=== PATIENT | male | born 1985 | race Caucasian/White ===

== ENCOUNTER 2018-11-18 04:29 | Emergency (ER) | payer BC, SELFPAY ==
[2018-11-18 04:31] VITALS: BP 139/82; PULSE 84; RESP 16; TEMP 36.4; O2SAT 100; BMI 21.3
--- NOTE | 2018-11-18 04:43 | EKG12_ITS ---
Test Reason : CP Blood Pressure : / mmHG Vent. Rate : 066 BPM Atrial Rate : 066 BPM P-R Int : 116 ms QRS Dur : 118 ms QT Int : 382 ms P-R-T Axes : 006 080 072 degrees QTc Int : 400 ms Normal sinus rhythm Incomplete right bundle branch block Borderline ECG Confirmed by KYLE AMADOR, VASQUEZ ([id number]), news editor TAL CORDON ([id number]) on 11/21/2018 1:58:43 PM Referred By: ADDIE Confirmed By:VASQUEZ WRIGHT MD
--- NOTE | 2018-11-18 04:43 | RAD_ITS ---
HISTORY: CP Chest and neck pain x 1 day EXAM:XR Chest 2 Views COMPARISON: 05/21/2015 FINDINGS: EKG leads in place. No significant change. Normal heart size. Hyperinflation and hyperlucency of both lungs. Increased retrosternal airspace. No vascular congestion, pleural effusion, or acute pulmonary infiltration. No pneumothorax. The bony thorax appears intact. RAD/Chest PA and Lateral IMPRESSION: 1. No acute cardiopulmonary disease. No significant interval change. 2. COPD. at 0512 Reported and signed by: James Palm MD Electronically Signed: James Palm, at 5:10 EDT Tel , Service support ,
[2018-11-18 04:51] LABS: Absolute Lymphocyte Count 1.71 X10^3/ul (0.83-4.51); Absolute Neutrophil Count 3.2 X10^3/uL (2.0-7.7); Basophil# 0.01 X10^3/uL; Basophil% 0.2 % (0-1); Eosinophils% 1.8 % (0-5); Hemoglobin 15.8 g/dl (13.0-16.5); Lymphocyte # 1.71 X10^3/ul (4.0); Lymphocyte % 31.6 % (19-41); Mean Corp Hgb Conc 34.3 g/gl (32-36); Mean Corpuscular Hgb 29.5 pg (27.0-32.0); Mean Corpuscular Volume 85.8 fL (80-94); Mean Platelet Vol. 10.3 fl (6.2-12.0); Monocyte# 0.43 X10^3/uL; Monocyte% 7.9 % (0-10); Neutrophil # 3.15 X10^3/uL (2.7-7.7); Neutrophil % 58.3 % (47-70); Platelet Count 174 K/mm3 (150-450); RBC Distribution Width CV 12.5 % (11.6-14.6); RBC Distribution Width SD 39.5 fl (35.1-43.9); Red Blood Count 5.36 M/mm3 (4.6-6.2); White Blood Count 5.4 K/mm3 (4.4-11.0)
[2018-11-18 04:52] LABS: POSITIVE COUNT NO; POSITIVE DIFFERENTIAL NO; POSITIVE MORPHOLOGY NO
[2018-11-18 05:04] LABS: Anion Gap 6 (5-15); BUN 10 mg/dL (7-18); BUN/Creat Ratio 10.5 RATIO (10-20); Calcium,Total 8.7 mg/dL (8.5-10.1); Chloride 106 mmol/L (98-107); Creatinine, Serum 0.95 mg/dL (0.70-1.30); EST Glomerular Filtration Rate 96 mL/min (>60); Est Glom Filt Rate - Afr Amer 117 mL/min (>60); Estimated Creatinine Clearance 113.59 ml/min; Glucose 117 mg/dL (74-106); Potassium 3.6 mmol/L (3.5-5.1); Sodium Level 141 mmol/L (136-145)
--- NOTE | 2018-11-18 05:24 | ED.VISSUMM ---
- ER Visit Summary Date of Service: 11/18/18 Chief Complaint: Chest pain History of Present Illness: The patient is a 33 M who presents with chest pain. This began about an hour ago while watching a movie. He states that it is in the center of his chest and radiated up the right side of his neck. Currently he only has right-sided neck pain. There were no associated symptoms such as shortness of breath nausea vomiting or diaphoresis. He denies any medical history. He has had prior similar symptoms. Physical Examination: Afebrile vitals normal Moist mucous membranes No distress Heart regular rate and rhythm no murmur Lungs are clear Abdomen soft Alert Test Results: EKG shows normal sinus rhythm at a rate of 66 with no acute ischemic changes. Labs are normal with a negative troponin and chest x-ray shows no acute disease. Emergency Department Course and Treatment: Patient is otherwise healthy without risk factors for coronary artery disease. He has normal EKG and negative labs. I do not believe this is cardiac in nature. He was advised on signs and symptoms to monitor for and conditions which should prompt return here to the emergency department. Otherwise he was advised to follow-up as an outpatient. Patient was discharged. Treatment Plan: [] Disposition: Discharge Impression: Chest pain This note was generated with [employer] dictation software. It may contain incorrect words, spelling, and punctuation that were not noted in review of the chart prior to signing ED Disposition - Plan for ED Patient: Referrals: Care Physician,No Primary [Primary Care Provider] -
--- NOTE | 2018-11-18 05:26 | ED.DEP ---
ED Disposition - Plan for ED Patient: Instructions: ED Chest Pain NonCardiac Referrals: Care Physician,No Primary [Primary Care Provider] -
[2018-11-18 05:30] VITALS: BP 106/69; PULSE 61; RESP 12; O2SAT 98
== END 2018-11-18 05:31 | disposition home or self-care (01) ==
LOC: ED 04:53
PROVIDERS: Emergency Provider Emergency Medicine
DX: R07.9 Chest pain, unspecified (principal); Z72.0 Tobacco use
CPT/HCPCS: 71046; 80048; 84484; 85025; 93005; 99283

== ENCOUNTER → 2019-04-24 12:19 | Outpatient (CLI) | payer BC, SELFPAY ==
--- NOTE | 2019-04-24 12:21 | US_ITS ---
STUDY: SUPERFICIAL ULTRASOUND - LEFT INGUINAL REGION, REASON FOR EXAM: Male, 34 years old. Palpable lump TECHNIQUE: A superficial ultrasound was performed with real-time and static foote-scale imaging. COMPARISON: None. FINDINGS: Ultrasound evaluation of the left inguinal region shows a poorly defined hypoechoic nodule measuring 3.1 x 1.4 x 1.0 cm, likely lymph node. Short-term follow-up recommended to assure resolution US/Ext Non Vasc Limited/Soft Tiss IMPRESSION: Likely lymph node corresponding to the palpable lump in the left inguinal region short-term follow-up recommended to assure resolution Electronically Signed: Zak Fair MD at 16:30 EDT , Service support ,
== END ==
PROVIDERS: Family Provider Family Medicine; PCP Family Medicine; Referring Provider Family Medicine; Visit Provider Family Medicine
DX: M79.605 Pain in left leg (principal)
CPT/HCPCS: 76882

== ENCOUNTER → 2021-12-17 | Outpatient (CLI) | payer OTHER, SELFPAY ==
[2021-12-17 12:10] LABS: Absolute Lymphocyte Count 1.34 X10^3/uL (0.83-4.51); Absolute Neutrophil Count 2.3 X10^3/uL (2.0-7.7); Basophil# 0.03 X10^3/uL; Basophil% 0.7 % (0-1); Eosinophil# 0.05 X10^3/uL; Eosinophils% 1.2 % (0-5); Hematocrit 45.8 % (40-54); Hemoglobin 15.5 g/dL (13.0-16.5); Lymphocyte # 1.34 X10^3/ul (0.83-4.51); Lymphocyte % 32.1 % (19-41); Mean Corp Hgb Conc 33.8 g/dL (32-36); Mean Corpuscular Hgb 29.6 pg (27.0-32.0); Mean Corpuscular Volume 87.4 fL (80-94); Mean Platelet Vol. 10.8 fl (6.2-12.0); Monocyte% 9.6 % (0-10); NRBC Flagged by Analyzer 1.2 % (0-5); Neutrophil # 2.28 X10^3/uL (2.7-7.7); Neutrophil % 54.7 % (47-70); Platelet Count 248 K/mm3 (150-450); RBC Distribution Width CV 11.5 % (11.6-14.6); RBC Distribution Width SD 37.2 fl (35.1-43.9); Red Blood Count 5.24 M/mm3 (4.6-6.2); White Blood Count 4.2 K/mm3 (4.4-11.0)
[2021-12-17 12:29] LABS: AST(SGOT) 16 U/L (15-37); Alanine Aminotransfer ALT/SGPT 28 U/L (16-61); Albumin, Serum 4.5 g/dL (3.2-5.0); Alkaline Phosphatase 71 U/L (45-117); Anion Gap 5 (5-15); BUN 14 mg/dL (7-18); BUN/Creat Ratio 12.6 RATIO (10-20); Bilirubin, Direct 0.09 mg/dL (0.00-0.30); Calcium,Total 9.4 mg/dL (8.5-10.1); Chloride 104 mmol/L (98-107); Creatinine, Serum 1.11 mg/dL (0.70-1.30); EST Glomerular Filtration Rate 79 mL/min (>60); Est Glom Filt Rate - Afr Amer 96 mL/min (>60); Globulin 3.6 g/dL (2.2-4.2); Glucose 103 mg/dL (74-106); Potassium 4.5 mmol/L (3.5-5.1); Protein, Total 8.1 g/dL (6.4-8.2); Sodium Level 139 mmol/L (136-145)
[2021-12-17 13:19] LABS: Hepatitis B Surface Antibody Reactive; Hepatitis B Surface Antigen Non-Reactive (Nonreactive); Hepatitis C Antibody Non-Reactive (Nonreactive)
[2021-12-19 18:07] LABS: QNTFERON TB Mitogen Value > 10.00 IU/mL (.); QNTFERON TB Nil Value 0 IU/mL (.); QNTFERON TB1+ Ag Value 0.01 IU/mL (.); QNTFERON TB2+ Ag Value 0.01 IU/mL (.)
[2021-12-19 20:01] LABS: Hepatitis B Core Ab Total Negative (Negative); QNTIFERON TB Positive Criteria Negative (Negative)
== END | disposition home or self-care (01) ==
LOC: LAB 11:20
PROVIDERS: PCP Family Medicine; Referring Provider Dermatology; Visit Provider Dermatology
DX: L40.0 Psoriasis vulgaris (principal); Z79.899 Other long term (current) drug therapy
CPT/HCPCS: 36415; 80048; 80076; 85025; 86480; 86704; 86706; 86803; 87340

== ENCOUNTER 2023-03-06 10:30 | Emergency (ER) | payer OTHER, SELFPAY ==
[2023-03-06 10:30] VITALS: BP 114/86; PULSE 63; RESP 18; TEMP 36.4; O2SAT 100; BMI 23.1
--- NOTE | 2023-03-06 10:41 | VDLE_ITS ---
Reason For Study: Pain LLE RIGHT LEFT CFV is compressible, spontaneous, phasic, GSV is normal. competent and demonstrates normal CFV is compressible, spontaneous, phasic, augmentation. competent, and demonstrates normal Procedure augmentation. This is a venous duplex using B-mode, color FV is compressible, spontaneous, phasic, flow and spectral Doppler. competent and demonstrates normal Exam performed portable in ED. augmentation. A preliminary report was called and/or faxed POP V is compressible, spontaneous, phasic, to Dr. Ivy. competent and demonstrates normal augmentation. T/P Trunk is compressible. PTV is compressible. LT PerV is compressible. Lt Varicose vein at posterior knee is partially compressible consistent with acute SVT. VL/Venous Duplex US, Unilateral Interpretation Summary Acute superficial vein thrombosis is noted in varicosities in the popliteal fos sa. Deep veins of the left lower extremity are patent and compressible segmentally. There is no evidence of left lower extremity deep vein thrombosis. The left great saphenous vein ambrose ears patent and compressible segmentally. Ordering Physician: Carl Ivy Referring Physician: Migue Walker Performed By: Shaunna Quan, MINO, RVT
--- NOTE | 2023-03-06 10:41 | ED.VIS.LOWEX ---
HPI History of Present Illness HPI Narrative: 79-year-old male history of varicose veins. No other past medical history. No history of DVT or PE. Complaining of pain behind his left knee for the last 1 to 2 days. Denies any fall injury or trauma. No travel, surgery or hospitalization. Chief Complaint: Lower Extremity Injury Informant: patient Occured/Mechanism Mechanism/Context: No injury and No blunt trauma Onset/Context/Timing Onset: Today and Yesterday Context: Gradual Onset Timing: Continuous Quality of Pain: Dull and Aching Current Severity: Mild Maximum Severity: Mild Associated Symptoms Associated Symptoms: Negative for Parasthesia, Weakness or Loss of Funtion Narrative Narrative: 37-year-old male known history of varicose veins. Complaining of discomfort on his left knee. No history of DVT or PE or risk factors. Prior similar symptoms: No Recent Illness/Hospitalization: No PFSH PFSH Medical History Varicose veins of left lower extremity Home Medications ixekizumab 80 mg/mL subcutaneous auto-injector (Taltz Autoinjector) mg subcut 03/06/23 [History Last Taken Unknown] Allergy/AdvReac Type Severity Reaction Status Date / Time No Known Allergies Allergy Verified 11/18/18 04:30 Social History Smoking Status: Never smoker ROS ROS ED ROS Narrative Denies recent illness. Review of Systems ROS Unobtainable: Denies due to encephalopathy Constitutional Constitutional ED: Denies chills or fever(s) Eyes Eyes: Denies blurry vision ENT ENT ED: Denies ear pain Cardiovascular Cardiovascular: Denies chest pain Respiratory/Chest Respiratory/Chest: Denies cough or dyspnea Gastrointestinal Gastrointestinal: Denies abdominal pain Genitourinary Genitourinary ED: Denies dysuria or hematuria Musculoskeletal Musculoskeletal: Denies arthralgias Integumentary Denies abscess Neurologic Neurologic: Denies headache(s) Psychiatric Psychiatric: Denies anxiety or depression Endocrine Endocrinology: Denies polydipsia Hematologic/Lymphatic Hematologic/Lymphatic: Denies easy bleeding Allergic/Immunologic Allergic/Immunologic ED: Denies mouth swelling or tongue swelling EXAM Physical Exam Narrative Exam Narrative: Well-appearing 37-year-old male. Vital signs stable afebrile. HEENT exam unremarkable. Lungs clear. Heart regular rhythm no murmur. Abdomen soft. Moving all 4 extremities. Neurovascular intact. Behind his left knee is a varicose vein. He is tender to palpation. There is no discoloration. No redness or warmth. No signs of cellulitis. Both calves are nontender. There is no edema. He has normal strength in both lower extremities. Normal range of motion. No joint swelling. Otherwise exam unremarkable. Const Vital Signs: 03/06/23 10:30 Temperature 97.6 F L Temperature Source Temporal Pulse Rate 63 Respiratory Rate 18 Blood Pressure 114/86 H Blood Pressure Mean 95 Pulse Ox 100 Oxygen Delivery Method Room Air Positive well nourished and well developed; Negative for obese, cachectic, contractures or unkempt General Appearance ED: well developed and NAD; Negative for unkempt, cachectic or contractures Nutritional Appearance: Negative for cachectic or obese HEENT Reports moist mucous membranes normocephalic and atraumatic; Negative for trauma or tenderness Eyes PERRL General Eye ED: Negative for other Neck full ROM and supple Thyroid: Negative for tender Lymph Lymphatic: Negative for other Chest Wall inspection of chest normal and palpation of chest normal Resp normal respiratory effort, no retractions and clear to auscultation bilaterally Effort and Inspection: Negative for pain with movement Auscultation: Negative for rales, rhonchi, wheezes or diminished lung sounds Cardio regular rate, regular rhythm, S1 normal heart sound, S2 normal heart sound and no murmurs Rate: Negative for bradycardia or tachycardic Rhythm: Negative for abnormal rhythm GI non-tender, non-distended and no masses Inspection: Negative for abdominal distention Auscultation: normoactive bowel sounds Palpation: soft; Negative for tender or guarding Bladder / Kidney Exam: No other Back/Spine no CVA tenderness General Back: Negative for CVA tenderness Cervical Spine: Negative for cervical spine tenderness Thoracic Spine / Upper Back: Negative for thoracic spinal tenderness Lumbar Spine / Lower Back: Negative for lumbar spinal tenderness Extremity normal to inspection and full ROM Extremity Narrative: Tender varicose vein behind his left knee. No discoloration. No edema. No swelling. General Extremety ED: Negative for cyanosis or edema General Extremity: Negative for cyanosis or edema Neuro oriented x3, CN's II-XII intact bilaterally and moves all extremities Sensorium / Orientation: alert, oriented to person, oriented to place and oriented to time; Negative for orientation impaired, confused, lethargic or stuporous Motor Exam: strength 5/5 throughout Psych mental status grossly normal Appearance: Negative for unkempt Speech: No other Mood & Affect: Negative for anxious Skin no wounds Lesions: no lesions Rashes: no rashes Trauma: Negative for abrasion or laceration Image ED - Lower Extremity Diagram: 1. Tender varicose vein behind his left knee. MDM MDM MDM Narrative Medical decision making narrative: 37-year-old male with atraumatic pain behind his left knee with known varicose veins. Ultrasound being obtained to rule out DVT. Most likely is a superficial thrombophlebitis. This is a superficial thrombophlebitis per ultrasound. He will be treated with warm compresses anti-inflammatories and follow-up as needed. History & Record Review Discussion w/independent historian: Patient Lab Data Attestation: I reviewed the patient's lab results. Lab results narrative: Noninvasive study of his left leg showed superficial thrombophlebitis where he has the pain in where the varicose vein is. No DVT per the platform power technician. Discharge Plan Triage Chief Complaint: Lower Extremity Injury ED Provider: Carl Ivy Dx/Rx/DC Orders Clinical Impression: Superficial thrombophlebitis of left leg Instructions: ED Thrombophlebitis, Superficial Prescriptions: No Action Taltz Autoinjector 80 mg/mL auto-injector subcut Primary Care Provider: Migue Walker Referrals: Migue Walker MD [Primary Care Provider] - As Needed Activity Restrictions/Additional Instructions: Motrin for pain and inflammation. Warm compresses to posterior left knee. This should progressively improve. If not follow-up your primary care physician. Disposition Disposition: Home, Self Care
== END 2023-03-06 11:40 | disposition home or self-care (01) ==
LOC: ED 11:10
PROVIDERS: Emergency Provider Emergency Medicine; PCP Family Medicine; Visit Provider Emergency Medicine
DX: I80.02 Phlebitis and thrombophlebitis of superficial vessels of left lower extremity (principal)
CPT/HCPCS: 93971; 99282

== ENCOUNTER → 2023-06-22 | Outpatient (CLI) | payer OTHER, SELFPAY ==
--- NOTE | 2023-06-22 12:43 | VDLE_ITS ---
Reason For Study: Pain RIGHT LEFT CFV is compressible, spontaneous, phasic, CFV is compressible, spontaneous, phasic, competent and demonstrates normal competent, and demonstrates normal augmentation. augmentation. FV is compressible, spontaneous, phasic, FV is compressible, spontaneous, phasic, competent and demonstrates normal competent and demonstrates normal augmentation. augmentation. POP V is compressible, spontaneous, phasic, POP V is compressible, spontaneous, phasic, competent and demonstrates normal competent and demonstrates normal augmentation. augmentation. T/P Trunk is compressible. T/P Trunk is compressible. PTV is compressible. PTV is compressible. RT PerV is compressible. LT PerV is compressible. SFJ is INCOMPETENT and measures 0.74cm x 0.64 SFJ is INCOMPETENT and measures 0.96cm x 0.88 cm. cm. GSV proximal thigh measures 0.70cm x 0.75 cm. GSV proximal thigh measures 0.89cm x 1.19 cm. GSV at knee measures 0.64cm x 0.64 cm. GSV at knee measures 0.28cm x 0.29 cm. GSV INCOMPETENT throughout for greater than GSV INCOMPETENT throughout for greater than 0.5 seconds. 0.5 seconds. ASV mid thigh is INCOMPETENT for greater than ASV mid thigh is INCOMPETENT for greater than 0.5 seconds and measures 0.53cm x 0.62 cm. 0.5 seconds and measures 0.59cm x 0.74 cm. ASV at knee is INCOMPETENT for greater than ASV proximal calf is INCOMPETENT for greater 0.5 seconds and measures 0.59cm x 0.53 cm. than 0.5 seconds and measures 0.54cm x 0.61 ASV proximal calf is INCOMPETENT for greater cm. than 0.5 seconds and measures 0.37cm x 0.39 ASV mid calf is INCOMPETENT for greater than cm. 0.5 seconds and measures 0.44cm x 0.51 cm. SSV proximal calf is INCOMPETENT for greater SSV proximal calf is competent and measures than 0.5 seconds and measures 0.39cm x 0.40 0.26cm x 0.31 cm. cm. Lt knee varicose vein is dilated and non Procedure compressible consistent with acute SVT. This is a venous duplex using B-mode, color flow and spectral Doppler. Exam performed in department. A preliminary report was called and/or faxed to Kim ORTA. VL/Venous Duplex US - Eliel Extrem Interpretation Summary Acute superficial vein thrombosis is noted in varicosities at the left knee Deep veins of the bilateral lower extremities are patent and compressible segme ntally. There is no evidence of bilateral lower extremity deep vein thrombosis. The bilateral great saphenous veins appear patent and compressible segmentally. Positive for reflux in the right saphenofemoral junction, great saphenous vein throughout, accessory saphenous veins in thigh/at the knee/in calf, small saphenous vein Positive for reflux in the left saphenofemoral junction, great saphenous vein t hroughout, accessory saphenous veins in thigh/proximal calf/mid calf. Ordering Physician: Shannon Ramírez Referring Physician: Sahnnon Ramírez Performed By: Shaunna Quan, MINO, RVT
== END | disposition home or self-care (01) ==
LOC: CVS 12:42
PROVIDERS: Referring Provider Physician Assistant; Visit Provider Physician Assistant
DX: I80.02 Phlebitis and thrombophlebitis of superficial vessels of left lower extremity (principal); I83.893 Varicose veins of bilateral lower extremities with other complications
CPT/HCPCS: 93970

== ENCOUNTER 2025-07-04 09:06 | Emergency (ER) | payer OTHER, SELFPAY ==
[2025-07-04 09:07] VITALS: BP 139/81; PULSE 68; RESP 12; TEMP 36.4; O2SAT 100; BMI 23.2
--- NOTE | 2025-07-04 09:31 | EKG12_ITS ---
Test Reason : CHEST PAIN Blood Pressure : */* mmHG Vent. Rate : 78 BPM Atrial Rate : 78 BPM P-R Int : 154 ms QRS Dur : 116 ms QT Int : 374 ms P-R-T Axes : 69 65 69 degrees QTcB Int : 426 ms Normal sinus rhythm with sinus arrhythmia Normal ECG Confirmed by JESSICA AMADOR, MARCIAL ([id number]), editor department JOLANTA MONTANEZ ([id number]) on 07/05/2025 9:14:52 AM Referred By: Confirmed By: MARCIAL LOPEZ MD
--- NOTE | 2025-07-04 09:31 | ED.VIS.CHEST ---
HPI History of Present Illness Chief Complaint: Chest Pain Narrative Narrative: Patient is a 40-year-old male presenting to the emergency department for midsternal chest pain. Patient has no significant past medical history. No cardiac or pulmonary history. No recent travel, hospitalizations or surgeries. Denies any family history of sudden cardiac before the age of 50. States that this past week he has been up with his a significant portion of the night. States that last night around 2 or 3 AM he developed a midsternal chest pain that did not radiate anywhere. Denies any shortness of breath. Denies any diaphoresis, abdominal pain, nausea or vomiting. Denies any fever, chills, cough or congestion. States he has issues with varicose veins in his legs but this is unchanged from baseline with no increased pain or swelling. States that this morning he checked his pulse ox and it read 70% which concerned him and he came in to be evaluated. [facility] Medical History Varicose veins of left lower extremity Allergy/AdvReac Type Severity Reaction Status Date / Time No Known Allergies Allergy Verified 07/04/25 09:07 Social History Smoking Status: Never smoker ROS ROS ED ROS Narrative see HPI EXAM Physical Exam Narrative Exam Narrative: Vital signs: Reviewed General: Alert and oriented x 3. No acute distress HEENT: Head is normocephalic and atraumatic, sinuses nontender, pupils equal round and reactive. Nares are patent. Oropharynx and throat exams normal. Neck: Supple without lymphadenopathy nontender Cardiovascular: Regular rate and rhythm, no murmurs. No rubs or gallops. Normal S1 and S2 Respiratory: Clear to auscultation bilaterally. No wheezes, rales, rhonchi Chest: Chest wall is nontender to palpation. Abdominal: Soft and nontender. Normal bowel sounds. No guarding or rebound. Nonsurgical abdomen Extremities: No lower extremity edema. No tenderness. No bruising. Normal range of motion. Normal sensation. Skin: No rash or redness. The rest of the physical exam is unremarkable Const Vital Signs: 07/04/25 09:07 07/04/25 09:09 07/04/25 10:07 Temperature 97.6 F L Temperature Source Oral Pulse Rate 68 60 Respiratory Rate 12 9 L Respiratory Effort Normal Non-Labored Blood Pressure 139/81 H 132/77 H Blood Pressure Mean 100 95 Pulse Ox 100 100 Oxygen Delivery Method Room Air Room Air 07/04/25 10:33 Temperature 98 F Temperature Source Pulse Rate 78 Respiratory Rate 16 Respiratory Effort Blood Pressure 110/78 Blood Pressure Mean 88 Pulse Ox 97 Oxygen Delivery Method MDM MDM MDM Narrative Medical decision making narrative: Patient is a 40-year-old male presenting to the emergency department for chest pain. Patient was seen and examined. Vitals are stable. Patient resting in bed comfortably no acute distress. Saturating 100% on room air, respirations of 12, pulse of 68, BP of 139/81. He is afebrile. Differential includes but is not limited to: ACS, musculoskeletal, pneumonia, pneumothorax, PE I suspect that his pulse ox at home was not reading correctly given his read about 100% here with no shortness of breath. EKG shows normal sinus rhythm with sinus arrhythmia. There is no ischemic changes. There is no dysrhythmia. Will obtain chest x-ray and troponins. CBC with no leukocytosis and a normal hemoglobin. BMP with no significant abnormalities. Troponin within normal limits. Chest x-ray reviewed by myself and there is no opacities, pneumothorax or widened mediastinum. Patient is PERC negative. Updated the patient on the negative workup. Patient discharged from the Emergency Department. I do not feel that the patient's evaluation reveals any acute reason for admission at this time. I instructed them to either follow-up with their primary care physician or promptly return to the Emergency Department for reevaluation should symptoms worsen or new symptoms develop. I explained what symptoms would indicate the need to return to the emergency department. Shared decision making was used. The patient voiced understanding of the treatment plan and is agreeable with it. Clinical impression Chest pain History & Record Review Discussion w/independent historian: Patient Lab Data Attestation: I reviewed the patient's lab results. Labs: Laboratory Results - last 24 hr 07/04/25 09:10 WBC 6.2 RBC 5.26 Hgb 15.5 Hct 45.4 MCV 86.3 MCH 29.5 MCHC 34.1 RDW Std Deviation 37.3 RDW Coeff of Lauren 11.9 Plt Count 269 MPV 10.8 Immature Gran % (Auto) 0.200 Neut % (Auto) 66.8 Lymph % (Auto) 23.1 [place] % (Auto) 8.2 Eos % (Auto) 1.1 Baso % (Auto) 0.6 Absolute Neuts (auto) 4.2 Absolute Lymphs (auto) 1.44 Nucleated RBC % 0 Sodium 140 Potassium 3.6 Chloride 102 Carbon Dioxide 25.9 Anion Gap 12 BUN 13 Creatinine 0.97 Estim Creat Clear Calc 113.26 Est GFR (MDRD) Non-Af 101 BUN/Creatinine Ratio 13.0 Glucose 103 H Calcium 9.8 Troponin T High Sens < 6 Radiography Diagnostic Testing: Clinical Impression(s) from Imaging Studies Chest X-Ray 07/04/25 09:39 IMPRESSION: No acute pulmonary process, no interval change Reading Location: [place] [id number] Discharge Plan Triage Chief Complaint: Chest Pain ED Provider: Magui Parnell Dx/Rx/DC Orders Clinical Impression: Chest pain Instructions: ED Chest Pain, Uncertain Cause Primary Care Provider: Care Physician,No Primary Referrals: Gilberto Newell MD [Med Staff - Active Staff, Family Practice] - As soon as possible Care Physician,No Primary [Primary Care Provider, Medical] Activity Restrictions/Additional Instructions: Your evaluation in the Emergency Department did not reveal any acute reason for admission. However, I want to emphasize that you may be early in the course of a disease process or illness even if it is not present. For this reason you should follow-up within 24 hours for reevaluation with either your primary care physician or if necessary back here in the Emergency Department. You should return to the Emergency Department immediately if your symptoms worsen or new symptoms develop. Print Language: Israeli Disposition Disposition: Home, Self Care Discharge Date/Time: 07/04/25 10:34
--- NOTE | 2025-07-04 09:39 | RAD_ITS ---
PROCEDURE: CHEST PA AND LATERAL 07/04/2025 REASON FOR EXAM: CHEST PAIN TECHNIQUE: Procedure Code: RADCXR Modality: DX Procedure: CHEST PA AND LATERAL COMPARISON: 11/18/2018 FINDINGS: Hardware: EKG leads overlie the chest Heart: The heart size is normal. Mediastinum: The mediastinal contour is unremarkable. Lungs: The lungs are clear. Bones: The bones are unremarkable. RAD/Chest PA and Lateral IMPRESSION: No acute pulmonary process, no interval change Reading Location: [place] [id number]
[2025-07-04 09:54] LABS: Hematocrit 45.4 % (40-54); Hemoglobin 15.5 g/dL (13.0-16.5); Immature Granulocytes Count 0.010 X10^3/uL (0.0-0.0); Mean Corp Hgb Conc 34.1 g/dL (32-36); Mean Corpuscular Volume 86.3 fL (80-94); Mean Platelet Vol. 10.8 fl (6.2-12.0); NRBC Flagged by Analyzer 0 % (0-5); Platelet Count 269 K/mm3 (150-450); RBC Distribution Width CV 11.9 % (11.6-14.6); RBC Distribution Width SD 37.3 fl (35.1-43.9); Red Blood Count 5.26 M/mm3 (4.6-6.2); White Blood Count 6.2 K/mm3 (4.4-11.0)
[2025-07-04 10:07] VITALS: BP 132/77; PULSE 60; RESP 9; O2SAT 100
[2025-07-04 10:17] LABS: Anion Gap 12 (5-15); BUN 13 mg/dL (4-19); BUN/Creat Ratio 13.0 RATIO (10-20); Calcium,Total 9.8 mg/dL (7.6-11.0); Carbon Dioxide 25.9 mmol/L (21.0-32.0); Chloride 102 mmol/L (98-108); Estimated Creatinine Clearance 113.26 ml/min (50-250); Glucose 103 mg/dL (70-99); Potassium 3.6 mmol/L (3.3-5.1); Troponin T High Sensitivity < 6 ng/L (<=22)
[2025-07-04 10:33] VITALS: BP 110/78; PULSE 78; RESP 16; TEMP 36.6; O2SAT 97
--- OUTSIDE RECORDS SUMMARY | 2025-07-04 12:31 | XMS RPT_ITS | CCD ---
Author Organization [facility] Care Team Providers Care [place] Name Role Phone Dr. Migue Walker Primary Care Provider [phone] Dr. Lance Bryan Attending Provider Dr. Carl Ivy Referring Provider [phone] Migue Walker Referring Provider MARIE Ramírez Attending Provider [phone] Care Physician, No Primary Primary Care Provider Unavailable Lance Bryan Attending Unavailable Shannon Ramírez Referring Unavailable Care Physician, No Primary Primary Care Unava ilable Lance Bryan Attending Unavailable Migue Walker Primary Care Unavailable Carl Ivy Referring Unavailable Lance Bryan Attending Unavailable Care Physician, No Primary Primary Care Unava ilable Care Physician, No Primary Referring Unava ilable Shannon Ramírez Attending Unavailable Shannon Ramírez Referring Unavailable Care Physician, No Primary Primary Care Unava ilable Migue Walker Primary Care Unavailable Carl Ivy Attending Unavailable Lance Bryan Attending Unavailable Care Physician, No Primary Primary Care Unava ilable Shannon Ramírez Attending Unavailable Migue Walker Primary Care Unavailable Migue Walker Referring Unavailable Shannon Ramírez Attending Unavailable Migue Walker Primary Care Unavailable Migue Walker Referring Unavailable Medications Current Medications Medication Drug Class(es) Dates Sig (Normalized) Sig (Original) 1 ml ixekizumab 80 mg/ml auto-injector (2 sources) Interleukin-17A Antagonist Start: 03-06-2023 Ixekizumab (Taltz Autoinjector) 80 mg/mL auto-injector Active MG SC March 05, 2023 11:00pm Problems Active Problems Problem Classification Problem Date Documented Da te Episodic/Chronic Phlebitis; thrombophlebitis and thromboembolism (3 sources) Thrombophlebitis of superficial vein of left lower limb; Translations: [Phlebitis and thrombophlebitis of superficial vessels of left lower extremity] Onset: 3 03-06-2023 Episodic Varicose veins of lower extremity (4 sources) Varicose veins of lower extremity; Translations: [Varicose veins of bilateral lower extremities with other complications] Onset: 3 06-02-2023 Episodic Past or Other Problems Problem Classification Problem Date Documented Da te Episodic/Chronic Other non-traumatic joint disorders (1 source) Pain in left knee; Translations: [Pain in left knee] Onset: 03-12-2023 Episodic Results Test Name Value Interpretation Reference Range Facil ity MR/BMS.BVSon 07-18-2023 MR/BMS.BVS [facility] [address] [place] [address]. [address] [place] [address] OFFICE VISIT Date of Service: 07/18/23 MR#: [id number] Acct: [id number] Name: SHEILA AGUIAR Rep #: [id number] : 1985 Provider: Dr. Lance Bryan MD Age/Sex: 38/M Location: [facility] Status: Signed Intake Vital Signs 03/06/23 10:30 07/18/23 13:59 Height 6 ft 1 in Weight: 174 lb 14.4 oz 179 lb BMI 23.1 BP 114/86 H 113/73 Blood Pressure Location Lt brachial Position Sitting Respiration 18 16 Pulse 63 66 Pulse Source Monitor Temp 97.6 F L 98 F Temp Source Temporal Temporal Pulse Oximetry (%) 100 99 Oxygen Delivery Method room air Intake Visit Reasons: DISCUSS POSSIBLE ABLATION Is patient in pain?: No Allergies No Known Allergies Allergy (Verified 07/18/23 14:00) [facility] Medical History Varicose veins of left lower extremity Social History Smoking Status: Never smoker HPI HPI HPI: SHEILA AGUIAR, is a 38 M who presents to the office today for follow up of left lower extremity painful varicose veins and prior superficial thrombophlebitis. He has been wearing his compression stockings with minimal relief of symptoms. His most recent SVT resolved with NSAID and warm compresses. Denies ulcerations or new skin changes. ROS General General: No weight change, appetite, fatigue, colon cancer, breast cancer or weakness HEENT HEENT: No difficulty swallowing, eye injury, eye surgery, swollen glands or hoarseness Endo Endocrine: No thyroid disease, diabetes mellitus, thyroid cancer, Hair loss, heat intolerance or cold intolerance Skin Skin: No rash or changing moles Musc Musculoskeletal: No back problems, arthritis, rheumatoid arthritis, gout or joint pain Cardio Cardiovascular: No murmur, pacemaker, heart disease, atrial fibrillation, high blood pressure, heart attack, heart stent, palpitations, shortness of breat with exertion or chest pain Psych Psychiatric: No depression, anxiety or hearing voices Resp Respiratory: No shortness of breath, No sleep apnea, No cough, No COPD, No asthma, No emphysema and No wheezing Gastro Gastrointestinal: No abdominal pain, No nausea or vomiting, No diarrhea, No constipation, No blood in stool, No acid reflux, No hemorrhoids, No ulcers, No gallbladder problem and No black,tarry stools Barney Hematologic: No blood thinners, No blood disorders, No bleeding, No anemia and Yes blood clots Neuro Neurologic: No system reviewed and no additional complaints, except as documented, No as per HPI, No abnormal gait, No abnormal hearing, No abnormal movements, No abnormal speech, No behavioral changes, No burning sensations, No confusion, No convulsions, No disequilibrium, No dizziness, No localized weakness, No frequent falls, No headache(s), No lack of coordination, No loss of vision, No memory loss, No numbness, No other visual disturbances, No radicular pain, No restless legs, No sensory deficit, No syncope, No tingling, No tremor(s), No weakness and No other Exam Const General: cooperative, healthy appearing, comfortable, no acute distress and well developed Nutritional Appearance: well nourished Orientation: alert, awake and oriented x3 HENMT Head: normocephalic and atraumatic Ears: hearing grossly normal bilaterally Nose: external nose normal Eyes General: appearance normal, both eyes and all related structures EOM: EOM intact bilaterally Neck Neck: normal visual inspection, full ROM, no lymphadenopathy and trachea midline Thyroid: thyroid normal Lymphatic: no lymphadenopathy noted Resp Effort Inspection: normal respiratory effort, able to speak in complete sentences, symmetric chest movement, no audible wheezes, not labored, no stridor and no use of accessory muscles Auscultation: clear to auscultation bilaterally Cardio Rate: regular rate Rhythm: regular rhythm Heart Sounds: no murmurs Bruits: no carotid bruits Pulses: brachial pulses present, radial pulses present, popliteal pulses present, posterior tibial pulses present and dorsalis pedis present Skin General: no rashes or lesions noted and no erythema Wounds: no wounds Neuro Cranial Nerves: CN's II-XI intact bilaterally and EOM intact bilaterally Speech: speech normal Gait: normal gait Motor: strength 5/5 throughout Sensory Exam: no sensory deficits noted Extremities Lower Extremity Edema: None: Bilateral Veins: Bilateral: Varicose Veins Psych Appearance: grossly normal and well kempt Mental Status: mental status grossly normal Mood: congruent mood Speech and Movement: speech and movement normal Thought Content: normal Judgment: judgment good Coding Level of Care Code Off vis,est,l (more content not included)... Normal [facility] Venous Duplex US - Eliel [facility] 06-22-2023 Venous Duplex US - Eliel [facility] [address] [place] [address] Venous Duplex US - [facility] 06/22/23 1251 MR#: [id number] Acct: [id number] Name: SHEILA AGUIAR Rep #: [id number] : 1985 38 From: Lance Bryan MD Attending Dr: MARIE Bhardwaj Status: REG CLI Ordering Dr: Shannon Ramírez Date: 06/22/23 Location: [facility] Sex: M C Admitted: Reason For Study: Pain RIGHT LEFT CFV is compressible, spontaneous, phasic, CFV is compressible, spontaneous, phasic, competent and demonstrates normal competent, and demonstrates normal augmentation. augmentation. FV is compressible, spontaneous, phasic, FV is compressible, spontaneous, phasic, competent and demonstrates normal competent and demonstrates normal augmentation. augmentation. POP V is compressible, spontaneous, phasic, POP V is compressible, spontaneous, phasic, competent and demonstrates normal competent and demonstrates normal augmentation. augmentation. T/P Trunk is compressible. T/P Trunk is compressible. PTV is compressible. PTV is compressible. RT PerV is compressible. LT PerV is compressible. SFJ is INCOMPETENT and measures 0.74cm x 0.64 SFJ is INCOMPETENT and measures 0.96cm x 0.88 cm. cm. GSV proximal thigh measures 0.70cm x 0.75 cm. GSV proximal thigh measures 0.89cm x 1.19 cm. GSV at knee measures 0.64cm x 0.64 cm. GSV at knee measures 0.28cm x 0.29 cm. GSV INCOMPETENT throughout for greater than GSV INCOMPETENT throughout for greater than 0.5 seconds. 0.5 seconds. ASV mid thigh is INCOMPETENT for greater than ASV mid thigh is INCOMPETENT for greater than 0.5 seconds and measures 0.53cm x 0.62 cm. 0.5 seconds and measures 0.59cm x 0.74 cm. ASV at knee is INCOMPETENT for greater than ASV proximal calf is INCOMPETENT for greater 0.5 seconds and measures 0.59cm x 0.53 cm. than 0.5 seconds and measures 0.54cm x 0.61 ASV proximal calf is INCOMPETENT for greater cm. than 0.5 seconds and measures 0.37cm x 0.39 ASV mid calf is INCOMPETENT for greater than cm. 0.5 seconds and measures 0.44cm x 0.51 cm. SSV proximal calf is INCOMPETENT for greater SSV proximal calf is competent and measures than 0.5 seconds and measures 0.39cm x 0.40 0.26cm x 0.31 cm. cm. Lt knee varicose vein is dilated and non Procedure compressible consistent with acute SVT. This is a venous duplex using B-mode, color flow and spectral Doppler. Exam performed in department. A preliminary report was called and/or faxed to [facility]. VL/Venous Duplex US - Eliel Extrem Interpretation Summary Acute superficial vein thrombosis is noted in varicosities at the left knee Deep veins of the bilateral lower extremities are patent and compressible segmentally. There is no evidence of bilateral lower extremity deep vein thrombosis. The bilateral great saphenous veins appear patent and compressible segmentally. Positive for reflux in the right saphenofemoral junction, great saphenous vein throughout, accessory saphenous veins in thigh/at the knee/in calf, small saphenous vein Positive for reflux in the left saphenofemoral junction, great saphenous vein throughout, accessory saphenous veins in thigh/proximal calf/mid calf. Ordering Physician: Shannon Ramírez Referring Physician: Shannon Ramírez Performed By: Shaunna Quan, MINO, RVT 06/23/23818 Date Lance Bryan MD CC: MARIE Bhardwaj; No Primary Care Physician Date Dictated: 06/22/23 1251 Date Transcribed: 06/23/[address]18 [address] Sealer: Signed [facility] MR/BMS.BVSon 06-02-2023 /BMS.S [facility] [address] [place] [address]. [address] [place] [address] OFFICE VISIT Date of Service: 06/02/23 MR#: [id number] Acct: [id number] Name: SHEILA AGUIAR Rep #: [id number] : 1985 Provider: MARIE Bhardwaj Age/Sex: 38/M Location: [facility] Status: Signed Intake Vital Signs 03/06/23 10:30 06/02/23 10:10 Height 6 ft 1 in Weight: 174 lb 14.4 oz 173 lb BMI 23.1 BP 114/86 H 115/74 Blood Pressure Location Lt brachial Position Sitting Respiration 18 16 Pulse 63 66 Pulse Source Monitor Temp 97.6 F L 98.2 F Temp Source Temporal Temporal Pulse Oximetry (%) 100 99 Oxygen Delivery Method room air Intake Visit Reasons: CONSULT-VARICOSE VEINS Allergies No Known Allergies Allergy (Verified 06/02/23 10:11) Medications ixekizumab 80 mg/mL subcutaneous auto-injector (Taltz Autoinjector) mg subcut 03/06/23 [History] [facility] Medical History Varicose veins of left lower extremity Social History Smoking Status: Never smoker HPI HPI HPI: SHEILA AGUIAR, is a 38 M who presents to the office today for evaluation of varicose veins and superficial thrombophlebitis. Patient reports a history of recurrent phlebitis of particularly the varicosities around his L knee. This most recently occurred in March, and the acute symptoms did resolve with NSAIDs/warm compresses, did not require anticoagulation. He has bilateral lower extremity varicose veins, but only the left lower leg veins cause him discomfort. He has minimal associated swelling. He has no personal history of DVT or PE. He does report a strong family history of varicose veins in his siblings and father. He reports that his younger brother has had unprovoked DVT in the past for which he has been treated with anticoagulation and is currently undergoing hypercoagulable workup but no diagnosis to his knowledge. He has worn nonmeasured compression stockings in the past, these don't seem to be of significant benefit. He has not had any prior vascular evaluation or intervention. ROS General General: No weight change, appetite, fatigue, colon cancer, breast cancer or weakness HEENT HEENT: No difficulty swallowing, eye injury, eye surgery, swollen glands or hoarseness Endo Endocrine: No thyroid disease, diabetes mellitus, thyroid cancer, Hair loss, heat intolerance or cold intolerance Skin Skin: No rash or changing moles Musc Musculoskeletal: No back problems, arthritis, rheumatoid arthritis, gout or joint pain Cardio Cardiovascular: No murmur, pacemaker, heart disease, atrial fibrillation, high blood pressure, heart attack, heart stent, palpitations, shortness of breat with exertion or chest pain Psych Psychiatric: No depression, anxiety or hearing voices Resp Respiratory: No shortness of breath, No sleep apnea, No cough, No COPD, No asthma, No emphysema and No wheezing Gastro Gastrointestinal: No abdominal pain, No nausea or vomiting, No diarrhea, No constipation, No blood in stool, No acid reflux, No hemorrhoids, No ulcers, No gallbladder problem and No black,tarry stools Barney Hematologic: No blood thinners, No blood disorders, No bleeding, No anemia and Yes blood clots Neuro Neurologic: No system reviewed and no additional complaints, except as documented, No as per HPI, No abnormal gait, No abnormal hearing, No abnormal movements, No abnormal speech, No behavioral changes, No burning sensations, No confusion, No convulsions, No disequilibrium, No dizziness, No localized weakness, No frequent falls, No headache(s), No lack of coordination, No loss of vision, No memory loss, No numbness, No other visual disturbances, No radicular pain, No restless legs, No sensory deficit, No syncope, No tingling, No tremor(s), No weakness and No other Exam Const General: cooperative, healthy appearing, comfortable and no acute distress Nutritional Appearance: average body habitus Orientation: alert, awake and oriented x3 HENMT Head: normal to inspection, normocephalic and atraumatic Ears: hearing grossly normal bilaterally and external ears normal Nose: external nose normal Eyes General: appearance normal, both eyes and all related structures EOM: EOM intact bilaterally Neck Neck: normal visual inspection and trachea midline Carotids: no bruits Resp Effort Inspection: normal respiratory effort, able to speak in complete sentences, no audible wheezes, no grunting, not labored, no retractions and no stridor Auscultation: clear to auscultation bilaterally Cardio Rate: regular rate Rhythm: regular rhythm Heart Sounds: no murmurs Bruits: no carotid bruits Skin General: no rashes or lesions noted Trauma: no lacerations or abr (more content not included)... Normal [facility] Emergency Department Summary on 03-06-2023 Emergency Department Summary [facility] Medical Records Department [address] [place] [address] Emergency Department Summary 03/06/23 MR#: [id number] Acct: [id number] Name: SHEILA AGUIAR Rep #: [id number] : 1985 37 From: Carl Ivy MD PCP: Dr. Migue Walker MD Status:REG ER Location: ED HPI History of Present Illness HPI Narrative: 79-year-old male history of varicose veins. No other past medical history. No history of DVT or PE. Complaining of pain behind his left knee for the last 1 to 2 days. Denies any fall injury or trauma. No travel, surgery or hospitalization. Chief Complaint: Lower Extremity Injury Informant: patient Occured/Mechanism Mechanism/Context: No injury and No blunt trauma Onset/Context/Timing Onset: Today and Yesterday Context: Gradual Onset Timing: Continuous Quality of Pain: Dull and Aching Current Severity: Mild Maximum Severity: Mild Associated Symptoms Associated Symptoms: Negative for Parasthesia, Weakness or Loss of Funtion Narrative Narrative: 37-year-old male known history of varicose veins. Complaining of discomfort on his left knee. No history of DVT or PE or risk factors. Prior similar symptoms: No Recent Illness/Hospitalization: No PFSH PFSH Medical History Varicose veins of left lower extremity Home Medications ixekizumab 80 mg/mL subcutaneous auto-injector (Taltz Autoinjector) mg subcut 03/06/23 [History Last Taken Unknown] Allergy/AdvReac Type Severity Reaction Status Date / Time No Known Allergies Allergy Verified 11/18/18 04:30 Social History Smoking Status: Never smoker ROS ROS ED ROS Narrative Denies recent illness. Review of Systems ROS Unobtainable: Denies due to encephalopathy Constitutional Constitutional ED: Denies chills or fever(s) Eyes Eyes: Denies blurry vision ENT ENT ED: Denies ear pain Cardiovascular Cardiovascular: Denies chest pain Respiratory/Chest Respiratory/Chest: Denies cough or dyspnea Gastrointestinal Gastrointestinal: Denies abdominal pain Genitourinary Genitourinary ED: Denies dysuria or hematuria Musculoskeletal Musculoskeletal: Denies arthralgias Integumentary Denies abscess Neurologic Neurologic: Denies headache(s) Psychiatric Psychiatric: Denies anxiety or depression Endocrine Endocrinology: Denies polydipsia Hematologic/Lymphatic Hematologic/Lymphatic: Denies easy bleeding Allergic/Immunologic Allergic/Immunologic ED: Denies mouth swelling or tongue swelling EXAM Physical Exam Narrative Exam Narrative: Well-appearing 37-year-old male. Vital signs stable afebrile. HEENT exam unremarkable. Lungs clear. Heart regular rhythm no murmur. Abdomen soft. Moving all 4 extremities. Neurovascular intact. Behind his left knee is a varicose vein. He is tender to palpation. There is no discoloration. No redness or warmth. No signs of cellulitis. Both calves are nontender. There is no edema. He has normal strength in both lower extremities. Normal range of motion. No joint swelling. Otherwise exam unremarkable. Const Vital Signs: 03/06/23 10:30 Temperature 97.6 F L Temperature Source Temporal Pulse Rate 63 Respiratory Rate 18 Blood Pressure 114/86 H Blood Pressure Mean 95 Pulse Ox 100 Oxygen Delivery Method Room Air Positive well nourished and well developed; Negative for obese, cachectic, contractures or unkempt General Appearance ED: well developed and NAD; Negative for unkempt, cachectic or contractures Nutritional Appearance: Negative for cachectic or obese HEENT Reports moist mucous membranes normocephalic and atraumatic; Negative for trauma or tenderness Eyes PERRL General Eye ED: Negative for other Neck full ROM and supple Thyroid: Negative for tender Lymph Lymphatic: Negative for other Chest Wall inspection of chest normal and palpation of chest normal Resp normal respiratory effort, no retractions and clear to auscultation bilaterally Effort and Inspection: Negative for pain with movement Auscultation: Negative for rales, rhonchi, wheezes or diminished lung sounds Cardio regular rate, regular rhythm, S1 normal heart sound, S2 normal heart sound and no murmurs Rate: Negative for bradycardia or tachycardic Rhythm: Negative for abnormal rhythm GI non-tender, non-distended and no masses Inspection: Negative for abdominal distention Auscultation: normoactive bowel sounds Palpation: soft; Negative for tender or guarding Bladder / Kidney Exam: No other Back/Spine no CVA tenderness General Back: Negative for CVA tenderness Cervical Spine: Negative for cervical spine tenderness Thoracic Spine / Upper Back: Negative for thoracic spinal tenderness Lumbar Spine / Lower Back: Neg (more content not included)... Normal [facility] Venous Duplex US, Unilateral on 03-06-2023 Venous Duplex US, Unilateral [facility] [address] [place] [address] Venous Duplex US, Unilateral 03/06/23 1129 MR#: [id number] Acct: [id number] Name: SHEILA AGUIAR Rep #: [id number] : 1985 37 From: Lance Bryan MD Attending Dr: Status: DEP ER Ordering Dr: Carl Ivy MD Date: 08/06/23 Location: ED Sex: M C Admitted: Reason For Study: Pain LLE RIGHT LEFT CFV is compressible, spontaneous, phasic, GSV is normal. competent and demonstrates normal CFV is compressible, spontaneous, phasic, augmentation. competent, and demonstrates normal Procedure augmentation. This is a venous duplex using B-mode, color FV is compressible, spontaneous, phasic, flow and spectral Doppler. competent and demonstrates normal Exam performed portable in ED. augmentation. A preliminary report was called and/or faxed POP V is compressible, spontaneous, phasic, to Dr. Ivy. competent and demonstrates normal augmentation. T/P Trunk is compressible. PTV is compressible. LT PerV is compressible. Lt Varicose vein at posterior knee is partially compressible consistent with acute SVT. VL/Venous Duplex US, Unilateral Interpretation Summary Acute superficial vein thrombosis is noted in varicosities in the popliteal fossa. Deep veins of the left lower extremity are patent and compressible segmentally. There is no evidence of left lower extremity deep vein thrombosis. The left great saphenous vein appears patent and compressible segmentally. Ordering Physician: Carl Ivy Referring Physician: Migue Walker Performed By: Shaunna Quan, RDCS, RVT 03/07/23 1045 Date Lance Bryan MD CC: Dr. Carl Ivy MD; Dr. Migue Walker MD Date Dictated: 03/06/23 1129 Date Transcribed: 03/07/[address]: Signed Normal [facility] Absolute lymphocyte counton 12-17-2021 Lymphocytes Auto (Unsp spec) [#/Vol] 1.34 10*3/uL 0.83-4.51 [facility] Work Phone: Basophil percentageon 2021 Basophils/100 WBC (Bld) 0.7 % 0-1 [facility] Work Phone: Bilirubin [Mass/Vol] 0.40 mg/dL 0.20-1.00 [facility] Work Phone: Comment on above: For patients on eltr ombopag therapy, use of Dimension [place] TBIL is not recommended. Chloride [Moles/Vol] 104 mmol/L 98-107 [facility] Work Phone: Eosinophils/100 WBC (Bld) 1.2 % 0-5 [facility] Work Phone: Glucose [Mass/Vol] 103 mg/dL 74-106 [facility] Work Phone: Comment on above: Fasting Glucose resu lt from 100 to 125 mg/dL suggests IMPAIRED HOMEOSTASIS per A.D.A. criteria. Neutrophils (Bld) [#/Vol] 2.3 10*3/uL 2.0-7.7 [facility] Work Phone: Neutrophils/100 WBC (Bld) 54.7 % 47-70 [facility] Work Phone: Potassium [Moles/Vol] 4.5 mmol/L 3.5-5.1 [facility] Work Phone: Protein [Mass/Vol] 8.1 g/dL 6.4-8.2 [facility] Work Phone: Sodium [Moles/Vol] 139 mmol/L 136-145 [facility] Work Phone: WBC (Bld) [#/Vol] 4.2 10*3/uL 4.4-11.0 [facility] Work Phone: Blood erythrocytes count (nu mber/volume)on 12-17-2021 RBC (Bld) [#/Vol] 5.24 10*6/uL 4.6-6.2 [facility] Work Phone: Blood hemoglobin measurement (mass/volume)on 12-17-2021 Hemoglobin (Bld) [Mass/Vol] 15.5 g/dL 13.0-16.5 [facility] Work Phone: [phone] Blood lymphocytes/100 leukoc yteson 12-17-2021 Lymphocytes/100 WBC (Bld) 32.1 % 19-41 [facility] Work Phone: [phone] Blood monocytes/100 leukocyt eson 12-17-2021 Monocytes/100 WBC (Bld) 9.6 % 0-10 [facility] Work Phone: [phone] Blood platelet mean volumeon 12-17-2021 Platelet mean volume (Bld) [Entitic vol] 10.8 fL 6.2-12.0 [facility] Work Phone: [phone] Determination of erythrocyte mean corpuscular volume (MCV)on 12-17-2021 MCV (RBC) [Entitic vol] 87.4 fL 80-94 [facility] Work Phone: [phone] Direct bilirubinon Bilirubin.direct [Mass/Vol] 0.09 mg/dL 0.00-0.30 [facility] Work Phone: [phone] Hematocrit Auto (Bld) [Volum e fraction]on 12-17-2021 Hematocrit (Bld) [Volume fraction] 45.8 % 40-54 [facility] Work Phone: [phone] Laboratory - Chemistry and C hemistry - challengeon 12-17-2021 ALP [Catalytic activity/Vol] 71 U/L 45-117 [facility] Work Phone: [phone] ALT [Catalytic activity/Vol] 28 U/L 16-61 [facility] Work Phone: [phone] CO2 [Moles/Vol] 30.0 mmol/L 21.0-32.0 [facility] Work Phone: [phone] Globulin (S) [Mass/Vol] 3.6 g/dL 2.2-4.2 [facility] Work Phone: Urea nitrogen/Creatini ne [Mass ratio] 12.6 mg/mg 10-20 [facility] Work Phone: [phone] Laboratory - Hematology and Cell countson 12-17-2021 Erythrocyte distribution width (RBC) [Entitic vol] 37.2 fL 35.1-43.9 [facility] Work Phone: [phone] Erythrocyte distribution width (RBC) [Ratio] 11.5 % 11.6-14.6 [facility] Work Phone: [phone] Immature granulocytes/100 WBC (Bld) 1.700 % 0.0-0.9 [facility] Work Phone: [phone] Comment on above: IG% - Immature Granu locytes (promyelocytes, myelocytes and metamyelocytes) > 1% indicates that a LEFT SHIFT is Present. MCH (RBC) [Entitic mass] 29.6 pg 27.0-32.0 [facility] Work Phone: [phone] Nucleated RBC/100 WBC (Bld) [Ratio] 1.2 % 0-5 [facility] Work Phone: [phone] MCHC Auto (RBC) [Mass/Vol]on 12-17-2021 MCHC (RBC) [Mass/Vol] 33.8 g/dL 32-36 [facility] Work Phone: [phone] Panel Informationon 12-17 Estimated GFR (MDRD) Amer 96 mL/min >60 [facility] Work Phone: [phone] Comment on above: GFR Calc Estimated GFR (MDRD) Non-Af Amer 79 mL/min >60 [facility] Work Phone: [phone] Comment on above: Non- GFR Calc Hepatitis B Surface Antigen Non-Reactive Nonreactive [facility] Work Phone: [phone] Hepatitis C Antibody Non-Reactive Nonreactive [facility] Work Phone: [phone] Comment on above: Non Reactive: < 0.8 Equivocal: >/= 0.8 to < 1.0 Reactive: >/= 1.0The CDC recommends that a reactive/equivocal HCV antibody result be followed up by the HCV Nucleic Acid Amplificationtest (923166) Platelets bldon 12-17-2021 Platelets (Bld) [#/Vol] 248 10*3/uL 150-450 [facility] Work Phone: Qualitative QuantiFERON-TB g old in tube teston 12-17-2021 M. tuberculosis tuberculin stim IFN-g Ql (Bld) 0.01 IU/mL [facility] Work Phone: Serum hepatitis B virus core antibody detectionon 12-17-2021 HBV core Ab Ql (S) Negative Negative [facility] Work Phone: Comment on above: Performed at: [facility] [address] [id number] Director: Preston Cantrell PhD, Phone: [phone] Serum hepatitis B virus surf ibrahima antibody IgG detectionon 12-17-2021 HBV surface IgG Ql (S) Reactive [facility] Work Phone: Comment on above: Non Reactive: Incons istent with immunity less than <10 mIU/mL Reactive: Consistent with immunity greater than or equal to 10 mIU/mL Serum or plasma albumin alejandro urement (mass/volume)on 12-17-2021 Albumin [Mass/Vol] 4.5 g/dL 3.2-5.0 [facility] Work Phone: Serum or plasma calcium alejandro urement (mass/volume)on 12-17-2021 Calcium [Mass/Vol] 9.4 mg/dL 8.5-10.1 [facility] Work Phone: Serum or plasma creatinine m easurement (mass/volume)on 12-17-2021 Creatinine [Mass/Vol] 1.11 mg/dL 0.70-1.30 [facility] Work Phone: Comment on above: The validity of the calculated GFR & GFRAA in patients over 70 years has not been determined. Clinical correlation is essential. Serum or plasma urea nitroge n measurement (mass/volume)on 12-17-2021 Urea nitrogen [Mass/Vol] 14 mg/dL 7-18 [facility] Work Phone: Thin prep Papanicolaou smear with manual screeningon 12-17-2021 Thin prep Papanicolaou smear with manual screening 16 U/L 15-37 [facility] Work Phone: Thin prep Papanicolaou smear with manual screening 5 5-15 [facility] Work Phone: Thin prep Papanicolaou smear with manual screening Comment [facility] Work Phone: Comment on above: The QuantiFERON-TB G old Plus result is determined bysubtracting the Nil value from either TB antigen (Ag) tube.The mitogen tube serves as a control for the test. Thin prep Papanicolaou smear with manual screening 0.01 IU/mL [facility] Work Phone: Thin prep Papanicolaou smear with manual screening 0 IU/mL [facility] Work Phone: Thin prep Papanicolaou smear with manual screening > 10.00 IU/mL [facility] Work Phone: Thin prep Papanicolaou smear with manual screening Negative Negative [facility] Work Phone: Comment on above: The specimen receive d for QuantiFERON testing was incubatedby the ordering institution. Specific procedures outlinedin our Directory of Services and in the package insert forthe QuantiFERON Gold (In Tube) test must be followed toenable for proper stimulation of cells for the productionof interferon gamma. Chemiluminescence immunoassaymethodology [facility] 07-12-2019 CNOV Office Visit (UCWSTR ) -- SHEILA AGUIAR ([id number]) 1985 M Date Time Provider Department 07/12/19 11:15 AM ENRIQUE ROCK [facility] During your visit today, we recorded the following information about you: Temperature Pulse Respiration Blood pressure 96.5 degrees 57/minute 16/minute 110/74 Weight 70.3 kg Enrique Rock MD 07/12/2019 11:45 AM Signed Patient presents with: STD: check HPI: Symptoms: None. He would like STI screening. Dysuria: No Frequency: No Hematuria: No Discharge: No Genital lesions: No blisters, ulcers, or bumps Nausea: No Fever or chills: No Back pain: No Abdominal pain: No Prior STI: Chlamydia 2017. Last screening 11/2017. New partner in the last 3 months. No known exposure from the partner. PAST MEDICAL HISTORY Diagnosis Date - NEGATIVE MEDICAL HISTORY PAST SURGICAL HISTORY Procedure Laterality Date - REPAIR NASAL SEPTAL FRACTURE 1992 MEDICATIONS: Current Outpatient Medications Medication Sig - ranitidine (ZANTAC) 150 mg tablet Take 1 tablet by mouth twice daily. - psyllium husk, bulk, 100 % powd 1 scoop once daily. - ELIMITE 5 % TOPICAL CREAM use as directed - HYDROXYZINE 25 MG TAB 1-2 tabs Q6 hours prn No current facility-administered medications for this visit. ALLERGIES: ALLERGIES No Known Allergies VITALS: BP 110/74 Pulse (!) 57 Temp (!) 35.8 ?C (96.5 ?F) (Left Tympanic) Resp 16 Wt 70.3 kg (155 lb) SpO2 99% BMI 21.02 kg/m? PHYSICAL EXAM: GEN: Pleasant, in no acute distress. ASSESSMENT/PLAN: 1. Routine screening for STI (sexually transmitted infection) - ICD9: V74.5, ICD10: Z11.3 Discussed screening options. - GC/CHLAMYDIA DNA DET - HIV 1 2 COMBO(AG/AB),WITH REFLEX TO DIFFERENTIATION - SYPHILIS TOTAL W/REFLEX Enrique Rock MD Referring Provider: SELF [200] Allergies As of Date: 07/12/2019 (No Known Allergies) Date Reviewed: 07/12/2019 Reviewed by: Meagan Arango Ma - Fully Assessed Reason for Visit: STD [102] Cmt: check Primary Visit Diagnosis:Routine screening for STI (sexually transmitted infection) [Z11.3] Order(s):GC/CHLAMYDIA DNA DET [SQGCCAMP] Order #: [id number] HIV 1 2 COMBO(AG/AB),WITH REFLEX TO DIFFERENTIATION [SQHIV12] Order #: [id number] FUTURE SYPHILIS TOTAL W/REFLEX [SQSYPHTX] Order #: [id number] FUTURE Prescriptions as of 07/12/2019 Sig: RANITIDINE 150 MG TABLET Take 1 tablet by mouth twice * PSYLLIUM HUSK (BULK) 100 % PO* 1 scoop once daily. ELIMITE 5 % TOPICAL CREAM use as directed HYDROXYZINE HCL 25 MG TABLET 1-2 tabs Q6 hours prn Problem List As Of Date: 07/12/2019 (None) Encounter Status:Closed by ENRIQUE ROCK MD on 07/12/19 Normal [facility] GC/Chlamydia Amplifon 2018 Chlamydia Amplif Negative Normal [facility] Comment on above: Performed By: #### G CCT #### [place] [address] GC Amplification Negative Normal [facility] Comment on above: Performed By: #### G CCT #### [place] [address] GC/Chlam Amp Source Urine Normal [facility] Comment on above: Performed By: #### G CCT #### [place] [address] [id number] Ag +HIV12 Abon 07-12 HIV 12 Ag/Ab Non Reactive Normal Non Reactive [facility] Comment on above: Performed By: #### S YPHTX, HIV12C #### [place] [address] HIV-1/2 Antibody Normal [facility] Comment on above: Result Comment: Test Not Indicated Negative No evidence of HIV-1 or HIV-2 infection. Should recent infection be suspected, repeat testing may be considered 2-3 weeks after this draw. HIV Information: [place] Rev. Code 3701.243(E): This information has been disclosed to you from confidential records protected from disclosure by state law. You shall make no further disclosure of this information without the specific, written, and informed release of the individual to whom it pertains or as otherwise permitted by state law. A general authorization for the release of medical or other information is not sufficient for the purpose of the release of HIV test results or diagnoses. Performed By: #### S YPHTX, HIV12C #### [facility] [address] [place] [address] PROGRESSon 07-12-2019 PROGRESS HNO ID: [id number] Author: Enrique Rock Service: ? Author Type: Physician Type: Progress Notes Filed: 07/12/2019 11:45 AM Note Text: Patient presents with: STD: check HPI: Symptoms: None. He would like STI screening. Dysuria: No Frequency: No Hematuria: No Discharge: No Genital lesions: No blisters, ulcers, or bumps Nausea: No Fever or chills: No Back pain: No Abdominal pain: No Prior STI: Chlamydia 2017. Last screening 11/2017. New partner in the last 3 months. No known exposure from the partner. PAST MEDICAL HISTORY Diagnosis Date - NEGATIVE MEDICAL HISTORY PAST SURGICAL HISTORY Procedure Laterality Date - REPAIR NASAL SEPTAL FRACTURE 1992 MEDICATIONS: Current Outpatient Medications Medication Sig - ranitidine (ZANTAC) 150 mg tablet Take 1 tablet by mouth twice daily. - psyllium husk, bulk, 100 % powd 1 scoop once daily. - ELIMITE 5 % TOPICAL CREAM use as directed - HYDROXYZINE 25 MG TAB 1-2 tabs Q6 hours prn No current facility-administered medications for this visit. ALLERGIES: ALLERGIES No Known Allergies VITALS: BP 110/74 Pulse (!) 57 Temp (!) 35.8 ?C (96.5 ?F) (Left Tympanic) Resp 16 Wt 70.3 kg (155 lb) SpO2 99% BMI 21.02 kg/m? PHYSICAL EXAM: GEN: Pleasant, in no acute distress. ASSESSMENT/PLAN: 1. Routine screening for STI (sexually transmitted infection) - ICD9: V74.5, ICD10: Z11.3 Discussed screening options. - GC/CHLAMYDIA DNA DET - HIV 1 2 COMBO(AG/AB),WITH REFLEX TO DIFFERENTIATION - SYPHILIS TOTAL W/REFLEX Enrique Rock MD [facility] Syphilis Ttl w/Reflxon 07-12 Syphilis Interp Cannot exclude recen t Treponemal infection if specimen collected within 7 to 10 days after appearance of suspect lesions or 2 to 3 weeks after an exposure. Clinical correlation is required. Normal [facility] Comment on above: Performed By: #### S YPHTX, HIV12C #### [facility] [address] [place], [place] [address] Syphilis Screen Rslt Non Reactive Normal Non Reactive [facility] Comment on above: Performed By: #### S YPHTX, HIV12C #### [facility] [address] [place], [place] [address] Vital Signs Date Time Vital Sign Value Performing Clinician Faci lity 06-02-2023 10:10-0400 Body temperature 98.2 [degF] Dr. Migue Walker Work Phone: [facility] 06-02-2023 10:10-0400 Body weight 78.[address] Migue Walker Work Phone: [facility] 06-02-2023 10:10-0400 Diastolic blood pressure 74 mm[Hg] Dr. Migue Walker Work Phone: [facility] 06-02-2023 10:10-0400 Heart rate 66 /min Dr. Migue Walker Work Phone: [facility] 06-02-2023 10:10-0400 Respiratory rate 16 /min Dr. Migue Walker Work Phone: [facility] 06-02-2023 10:10-0400 SaO2% (BldA) [Mass fraction] 99 % Dr. Migue Walker Work Phone: [facility] 06-02-2023 10:10-0400 Systolic blood pressure 115 mm[Hg] Dr. Migue Walker Work Phone: [facility] 03-06-2023 10:30-0400 Body height 185.42 cm [facility] 03-06-2023 10:30-0400 Body mass index (BMI) [Ratio] 23.1 kg/m2 [facility] 03-06-2023 10:30-0400 Body temperature 97.6 [degF] [facility] 03-06-2023 10:30-0400 Body weight 79.33 kg [facility] 03-06-2023 10:30-0400 Diastolic blood pressure 86 mm[Hg] [facility] 03-06-2023 10:30-0400 Heart rate 63 /min [facility] 03-06-2023 10:30-0400 Respiratory rate 18 /min [facility] 03-06-2023 10:30-0400 SaO2% (BldA) [Mass fraction] 100 % [facility] 03-06-2023 10:30-0400 Systolic blood pressure 114 mm[Hg] [facility] Encounters Encounter Date Encounter Type Care Provider Facility Start: 08-25-2023 [facility]ulatory [facility] Facility:[facility] Start: 07-18-2023 End: 07-18-2023 ambulatory [facility] Facility:[facility] Start: 06-22-2023 ambulatory Lance Irvin Facility:[facility] Start: 06-22-2023 Non-patient / Non-visit Dr. Hooper Work Phone: [facility] Start: 06-22-2023 End: 06-22-[address] Migue Walker Work Phone: [facility] Work Phone: Start: 06-22-2023 End: 06-22-[address] [facility] Start: 06-02-2023 End: 06-02-2023 ambulatory Shannon Ramírez Facility:[facility] Start: 06-02-2023 End: 06-02-[address] Migue Walker Work Phone: [facility] Work Phone: Start: 03-06-2023 ambulatory [facility] Facility:[facility] Start: 03-06-2023 End: 03-06-2023 Emergency department patient visit Migue Walker Facility:[facility] Start: 03-06-2023 Non-patient / Non-visit Dr. Hooper Work Phone: [facility] Start: 03-06-2023 End: 03-06-2023 Emergency department patient visit [facility] Work Phone: Start: 12-17-2021 End: 12-17-2021 Patient encounter procedure [facility] Plan of Treatment Date Care Activity Detail Author Patient Education ED Thrombophlebitis, Roe perficial [facility] Work Phone: Patient referral [facility] Work Phone: Payers Date Payer Category Payer Unknown [id number] 2023 Self-pay [id number] 2023 Unknown [id number] Unknown [id number] Unknown [id number] Unknown [id number] 2.16.8 [id number] Unknown [id number] 2.16.8 [id number] Unknown [id number] 2.16.8 [id number] Unknown [id number] 2.16.8 [id number] Unknown [id number] 2.16.8 [id number] Unknown [id number] 2.16.8 [id number] Unknown [id number] 2.16.8 [id number] Unknown [id number] 2.16.8 [id number] Social History Date Type Detail Facility Start: 11-18-2018 End: 06-02-2023 Tobacco smoking status NHIS Unknown if ever smoked [facility] Start: 1985 Sex Assigned At Male [facility] Discharge summary Note Date & Type Note Facility Discharge summary Note Date/Time March 06, 2023 10:47am [facility] Medical Records Department [address] [place] [address] Emergency Department Summary 03/06/23 MR#: [id number] Acct: [id number] Name: SHEILA AGUIAR Rep #:[id number] : 1985 37 From: Carl Ivy MD PCP: Dr. Migue Walker MD Status:R EG ER Location: ED HPI History of Present Illness HPI Narrative: 79-year-old male history of varicose veins. No other past medical history. No history of DVT or PE. Complaining of pain behind his left knee for the last 1 to 2 days. Denies any fall injury or trauma. No travel, surgery or hospitalization. Chief Complaint: Lower Extremity Injury Informant: patient Occured/Mechanism Mechanism/Context: No injury and No blunt trauma Onset/Context/Timing Onset: Today and Yesterday Context: Gradual Onset Timing: Continuous Quality of Pain: Dull and Aching Current Severity: Mild Maximum Severity: Mild Associated Symptoms Associated Symptoms: Negative for Parasthesia, Weakness or Loss of Funtion Narrative Narrative: 37-year-old male known history of varicose veins. Complaining of discomfort on his left knee. No history of DVT or PE or risk factors. Prior similar symptoms: No Recent Illness/Hospitalization: No PFSH PFSH Medical History Varicose veins of left lower extremity Home Medications ixekizumab 80 mg/mL subcutaneous auto-injector (Taltz Autoinjector) mg subcut 03/06/23 [History Last Taken Unknown] Allergy/AdvReac Type Severity Reaction Status Date / Time No Known Allergies Allergy Verified 11/18/18 04:30 Social History Smoking Status: Never smoker ROS ROS ED ROS Narrative Denies recent illness. Review of Systems ROS Unobtainable: Denies due to encephalopathy Constitutional Constitutional ED: Denies chills or fever(s) Eyes Eyes: Denies blurry vision ENT ENT ED: Denies ear pain Cardiovascular Cardiovascular: Denies chest pain Respiratory/Chest Respiratory/Chest: Denies cough or dyspnea Gastrointestinal Gastrointestinal: Denies abdominal pain Genitourinary Genitourinary ED: Denies dysuria or hematuria Musculoskeletal Musculoskeletal: Denies arthralgias Integumentary Denies abscess Neurologic Neurologic: Denies headache(s) Psychiatric Psychiatric: Denies anxiety or depression Endocrine Endocrinology: Denies polydipsia Hematologic/Lymphatic Hematologic/Lymphatic: Denies easy bleeding Allergic/Immunologic Allergic/Immunologic ED: Denies mouth swelling or tongue swelling EXAM Physical Exam Narrative Exam Narrative: Well-appearing 37-year-old male. Vital signs stable afebrile. HEENT exam unremarkable. Lungs clear. Heart regular rhythm no murmur. Abdomen soft. Moving all 4 extremities. Neurovascular intact. Behind his left knee is a varicose vein. He is tender to palpation. There is no discoloration. No redness or warmth. No signs of cellulitis. Both calves are nontender. There is no edema. He has normal strength in both lower extremities. Normal range ofmotion. No joint swelling. Otherwise exam unremarkable. Const Vital Signs: 03/06/23 10:30 Temperature 97.6 F L Temperature Source Temporal Pulse Rate 63 Respiratory Rate 18 Blood Pressure 114/86 H Blood Pressure Mean 95 Pulse Ox 100 Oxygen Delivery Method Room Air Positive well nourished and well developed; Negative for obese, cachectic, contractures or unkempt General Appearance ED: well developed and NAD; Negative for unkempt, cachectic or contractures Nutritional Appearance: Negative for cachectic or obese HEENT Reports moist mucous membranes normocephalic and atraumatic; Negative for trauma or tenderness Eyes PERRL General Eye ED: Negative for other Neck full ROM and supple Thyroid: Negative for tender Lymph Lymphatic: Negative for other Chest Wall inspection of chest normal and palpation of chest normal Resp normal respiratory effort, no retractions and clear to auscultation bilaterally Effort and Inspection: Negative for pain with movement Auscultation: Negative for rales, rhonchi, wheezes or diminished lung sounds Cardio regular rate, regular rhythm, S1 normal heart sound, S2 normal heart sound and no murmurs Rate: Negative for bradycardia or tachycardic Rhythm: Negative for abnormal rhythm GI non-tender, non-distended and no masses Inspection: Negative for abdominal distention Auscultation: normoactive bowel sounds Palpation: soft; Negative for tender or guarding Bladder / Kidney Exam: No other Back/Spine no CVA tenderness General Back: Negative for CVA tenderness Cervical Spine: Negative for cervical spine tenderness Thoracic Spine / Upper Back: Negative for thoracic spinal tenderness Lumbar Spine / Lower Back: Negative for lumbar spinal tenderness Extremity normal to inspection and full ROM Extremity Narrative: Tender varicose vein behind his left knee. No discoloration. No edema. No swelling. General Extremety ED: Negative for cyanosis or edema General Extremity: Negative for cyanosis or edema Neuro oriented x3, CN's II-XII intact bilaterally and moves all extremities Sensorium / Orientation: alert, oriented to person, oriented to place and oriented to time; Negative for orientation impaired, confused, lethargic or stuporous Motor Exam: strength 5/5 throughout Psych mental status grossly normal Appearance: Negative for unkempt Speech: No other Mood & Affect: Negative for anxious Skin no wounds Lesions: no lesions Rashes: no rashes Trauma: Negative for abrasion or laceration Image ED - Lower Extremity Diagram: 1. Tender varicose vein behind his left knee. MDM MDM MDM Narrative Medical decision making narrative: 37-year-old male with atraumatic pain behind his left knee with known varicose veins. Ultrasound being obtained to rule out DVT. Most likely is a superficialthrombophlebitis. This is a superficial thrombophlebitis per ultrasound. He will be treated with warm compresses anti-inflammatories and follow-up as needed. History & Record Review Discussion w/independent historian: Patient Lab Data Attestation: I reviewed the patient's lab results. Lab results narrative: Noninvasive study of his left leg showed superficial thrombophlebitis where he has the pain in where the varicose vein is. No DVT per the transport tank technician. Discharge Plan Triage Chief Complaint: Lower Extremity Injury ED Provider: Carl Ivy Dx/Rx/DC Orders Clinical Impression: Superficial thrombophlebitis of left leg Instructions: ED Thrombophlebitis, Superficial Prescriptions: No Action Taltz Autoinjector 80 mg/mL auto-injector subcut Primary Care Provider: Migue Walker Referrals: Migue Walkre MD [Primary Care Provider] - As Needed Activity Restrictions/Additional Instructions: Motrin for pain and inflammation. Warm compresses to posterior left knee. This should progressively improve. If not follow-up your primary care physician. Disposition Disposition: Home, Self Care What to do if you have Problems For any increased pain, shortness of breath, bleeding, nausea or vomiting, chestpain, or any unexpected problems, contact your Primary Care Provider. Call [facility] ([phone]) or report to the closest Emergency Room. Call 911 if necessary. 03/06/23 1133 <Electronically signed by Carl Ivy MD> Cosigner Signature (if applicable): CC: Dr. Migue Walker MD ~ Signed [facility] Work Phone: Evaluation note Note Date & Type Note Facility Evaluation note No assessment information availa ble [facility] Work Phone: Evaluation note Note Date & Type Note Facility Evaluation note Diagnosis Onset Date Varicose veins of bilateral lower extremities with other complications acu te [facility] Work Phone: Hospital Discharge instructions Note Date & Type Note Facility Hospital Discharge instructions Additional Instructions Motrin for pain and inflammation. Warm compresses to posterior left knee. This should progressively improve. If not follow-up your primary care physician. [facility] Work Phone: Summary Purpose Family History No Family History Records FoundNo Family History Records Found Advance Directives No Advanced Directives Records Found Advance Directive Response Recorded Date/ Time Living Will No November 18, 2018 4:32am Power of Manufacturing Industrial Engineer No November 18 4:32am Advance Directive Response Recorded Date/ Time Living Will No March 06, 2023 10:38am Power of Manufacturing Industrial Engineer No March 06 10:38am Advance Directive Response Recorded Date/ Time Living Will No March 06, 2023 9:38am Power of Manufacturing Industrial Engineer No March 06 9:38am Chief Complaint and Reason for Visit Chief Complaint lower ext Chief Complaint lower ext CONSULT-VARICOSE VEINS Phlebitis and thrombophlebitis of superficial vess Reason for Visit Varicose veins of bi lateral lower extremities with other complications Additional Source Comments (unrecognized sect ion and content) No Status Records FoundNo Status Records Found INFORMATION SOURCE (unrecogn ized section and content) DATE CREATED AUTHOR 07/13/2019 [facility] DATE CREATED AUTHOR AUTHOR'S PREMA ATMONY 07/20/2023 [facility] Goals (unrecognized section and content) Goals may be documented in a n alternate sectionGoals may be documented in an alternate sectionGoals may be documented in an alternate section Care Teams (unrecognized sec tion and content) Team Status: Active Member Role Status Dates Dr. Migue Walker MD Family Provider Active Dr. Migue Walker MD Primary Care Provider Active Team Status: Inactive Member Role Status Dates Dr. Migue Walker MD Primary Care Provider Active Dr. Carl Ivy MD Emergency Provider Active Team Status: Active Member Role Status Dates Dr. Migue Walker MD Family Provider Active No Primary Care Physician Primary Care Provider Active Team Status: Active Member Role Status Dates Dr. Migue Walker MD Primary Care Provider Active Dr. Lance Bryan MD Attending Provider Active Dr. Carl Ivy MD Referring Provider Active Team Status: Inactive Member Role Status Dates Dr. Migue Walker MD Primary Care Provider, Refer ring Provider Active MARIE Bhardwaj Attending Provider Active Team Status: Active Member Role Status Dates No Primary Care Physician Primary Care Provider Active Dr. Lance Bryan MD Attending Provider Active Team Status: Inactive Member Role Status Dates MARIE Bhardwaj Attending Provider, Referring Provid er Active No Primary Care Physician Primary Care Provider Active Team Status: Inactive Member Role Status Dates Dr. Migue Walker MD Primary Care Provider Active Dr. Carl Ivy MD Attending Provider, Emergency Pro vider Active FOR RECORDS PERTAINING TO PATIENTS WHO ARE OR HAVE BEEN ENROLLED IN A CHEMICAL DEPENDENCY/SUBSTANCEABUSE PROGRAM, SOME INFORMATION MAY BE OMITTED. This clinical summary was aggregated from multiple sources. Caution should be exercised in using it in the provision of clinical care. This summary normalizes information from multiple sources, and as a consequence, information in this document may materially change the coding, format and clinical context of patient data. In addition, data may be omitted in some cases. CLINICAL DECISIONS SHOULD BE BASED ON THE PRIMARY CLINICAL RECORDS. [employer] provides no warranty or guarantee of the accuracy or completeness of information in this document.
== END 2025-07-04 10:34 | disposition home or self-care (01) ==
PROVIDERS: Emergency Provider Student in an Organized Health Care Education/Training Program; Visit Provider Student in an Organized Health Care Education/Training Program
DX: R07.89 Other chest pain (principal); I83.92 Asymptomatic varicose veins of left lower extremity
CPT/HCPCS: 71046; 80048; 84484; 85025; 93005; 99284; A4216